=== PATIENT | female | born 1945 | race Asian ===

== ENCOUNTER 2017-04-03 08:15 | Day surgery (SDC) | payer MEDICARE, OTHER ==
[~2017-04-03 08:15] MED LIST: ATEN50TA PO; B CO1TAB4 PO; CALC-1174 PO; DICLOFENAC SODIUM 0.1% 2.5 ML OPHTHALMIC SOLUTION OD ONE; FENO67 PO; HYDR25TA PO; LISI-661 PO; LORA10TA7 PO; MOXIFLOXACIN HCL 0.5% 3 ML OPHTHALMIC SOLUTION OD ONE; OMEG100019 PO; OMEP20 PO; RINGERS SOLUTION,LACTATED 500 ML IV ONE
[2017-04-03] MEDS: PHENYLEPHRINE HCL 2.5% 2 ML OPHTHALMIC SOLUTION OD SCH ×2 (09:09→09:14)
[2017-04-03] MEDS: TROPICAMIDE 1% 2 ML OPHTHALMIC SOLUTION OD SCH ×2 (09:09→09:14)
[2017-04-03] MEDS ORDERED: MIDAZOLAM HCL 2 MG/2 ML VIAL IVP ONE (12:00)
[2017-04-03] MEDS ORDERED: FentaNYL CITRATE-PF 100 MCG/2 ML VIAL IVP ONE (12:00)
[2017-04-03] MEDS ORDERED: HYALURONATE SODIUM 12 MG/ML 0.8 ML SYRINGE IO ONE (17:31)
[2017-04-03] MEDS ORDERED: TETRACAINE HCL VISCOUS 0.5% 5 ML OPHTHALMIC SOLUTION OD ONE (17:31)
[2017-04-03] MEDS ORDERED: DEXAMETHASONE SOD PHOS 4 MG/ML VIAL IVP ONE (17:31)
[2017-04-03] MEDS ORDERED: LIDOCAINE HCL/PF 1% 2 ML VIAL IM ONE (17:31)
[2017-04-03] MEDS ORDERED: VANCOMYCIN HCL 500 MG/VIAL IV ONE (17:31)
[2017-04-03] MEDS ORDERED: POVIDONE-IODINE 10% 15 ML SOLUTION UD TP ONE (17:31)
[2017-04-03] MEDS ORDERED: HYALURONATE SOD/CHONDROITIN SOD 0.5 ML VIAL IO ONE (17:31)
== END 2017-04-03 11:25 | disposition home or self-care (01) ==
LOC: SURGERY 08:15
PROVIDERS: ATTEND Specialist
DX: H25.011 Cortical age-related cataract, right eye (principal); I10 Essential (primary) hypertension; E78.00 Pure hypercholesterolemia, unspecified; M19.90 Unspecified osteoarthritis, unspecified site; Z98.890 Other specified postprocedural states
CPT/HCPCS: 66984; 93005; C1780; J1100; J2250; J3010; J3370; J3490 ×2

== ENCOUNTER → 2018-11-12 | Outpatient (CLI) | payer MEDICARE, OTHER ==
[~2018-11-12] MED LIST changes: -DICLOFENAC SODIUM 0.1% 2.5 ML OPHTHALMIC SOLUTION OD ONE; -MOXIFLOXACIN HCL 0.5% 3 ML OPHTHALMIC SOLUTION OD ONE; +OMEG-135 PO; -OMEG100019 PO; -RINGERS SOLUTION,LACTATED 500 ML IV ONE
== END | disposition home or self-care (01) ==
LOC: RADPV 09:21
PROVIDERS: ATTEND Internal Medicine Cardiovascular Disease
DX: I08.3 Combined rheumatic disorders of mitral, aortic and tricuspid valves (principal); I10 Essential (primary) hypertension
CPT/HCPCS: 93306

== ENCOUNTER → 2021-05-25 | Outpatient (CLI) | payer MEDICARE, OTHER ==
[~2021-05-25] MED LIST changes: +ATEN-72 PO; -ATEN50TA PO; -FENO67 PO; +FENO67CA8 PO; -HYDR25TA PO; +HYDR25TA2 PO; -LISI-661 PO; +LISI-893 PO
== END | disposition home or self-care (01) ==
LOC: RADMN 13:26
PROVIDERS: ATTEND Legal Medicine
DX: I67.82 Cerebral ischemia (principal); R90.82 White matter disease, unspecified; R51.9 Headache, unspecified
CPT/HCPCS: 70551

== ENCOUNTER → 2021-07-10 | Outpatient (CLI) | payer MEDICARE, OTHER ==
[~2021-07-10] MED LIST changes: +B CO PO; -B CO1TAB4 PO
== END | disposition home or self-care (01) ==
LOC: RADPV 12:11
PROVIDERS: ATTEND Legal Medicine
DX: M47.812 Spondylosis without myelopathy or radiculopathy, cervical region (principal); I70.0 Atherosclerosis of aorta; M47.814 Spondylosis without myelopathy or radiculopathy, thoracic region; Z90.49 Acquired absence of other specified parts of digestive tract
CPT/HCPCS: 71046; 72040

== ENCOUNTER → 2021-12-29 | Outpatient (CLI) | payer MEDICARE, OTHER ==
[~2021-12-29] MED LIST changes: +FENO67CA16 PO; -FENO67CA8 PO; +OMEG-108 PO; -OMEG-135 PO; +REGADENOSON 0.4 MG/5 ML PF SYRINGE IVP ONE; +SESTAMIBI TC99M/UD ISOTOPE 1 EA INJ INJ ONE
[2021-12-29] MEDS: REGADENOSON 0.4 MG/5 ML PF SYRINGE IVP ONE (10:00)
[2021-12-29 10:44] VITALS: BP 147/82
== END | disposition home or self-care (01) ==
LOC: CARDMN 07:50
PROVIDERS: ATTEND Internal Medicine Cardiovascular Disease
DX: I49.3 Ventricular premature depolarization (principal); I49.9 Cardiac arrhythmia, unspecified; R07.9 Chest pain, unspecified
CPT/HCPCS: 78452; 93017; 93306; A9500; J2785

== ENCOUNTER → 2022-03-14 | Outpatient (CLI) | payer MEDICARE, OTHER ==
[~2022-03-14] MED LIST changes: -OMEG-108 PO; +OMEG-135 PO; -REGADENOSON 0.4 MG/5 ML PF SYRINGE IVP ONE; -SESTAMIBI TC99M/UD ISOTOPE 1 EA INJ INJ ONE
== END | disposition home or self-care (01) ==
LOC: RADPV 11:32
PROVIDERS: ATTEND Legal Medicine
DX: M79.661 Pain in right lower leg (principal); M79.662 Pain in left lower leg
CPT/HCPCS: 93925; 93970

== ENCOUNTER 2025-06-08 14:38 | Emergency (ER) | payer MEDICARE, OTHER ==
[~2025-06-08] VITALS: Ht 152.4 cm; Wt 45.5 kg
[~2025-06-08 14:38] MED LIST changes: +OMEP-148 PO; -OMEP20 PO
[2025-06-08 14:45] VITALS: TEMP 97.9
[2025-06-08] MEDS ORDERED: MAGN400T57 PO (14:55)
[2025-06-08] MEDS ORDERED: ATOR10TA PO (14:55)
[2025-06-08] MEDS ORDERED: AMLO-257 PO (14:55)
[2025-06-08 15:31] LABS: PLATELET COUNT (AUTO) 366 K/uL (150-450); RED BLOOD CELL COUNT(AUTO) 4.13 MIL/uL (4.00-5.20); RED CELL DISTRIBUTION WIDTH 14.5 % (11.5-14.5); WHITE BLOOD COUNT (AUTO) 4.4 K/uL (4.5-11.0)
[2025-06-08 15:37] LABS: CALCIUM, TOTAL 10.0 mg/dL (8.8-10.5); CREATININE 0.72 mg/dL (0.60-1.30); GLOMERULAR FILTR. RATE CALC > 60 mL/min (>60); GLUCOSE,RANDOM 103 mg/dL (70-110); SODIUM SERUM 140 mmol/L (136-145); UREA NITROGEN, BLOOD 19 mg/dL (7-18)
[2025-06-08 15:42] LABS: ERYTHROCYTE SEDIMENTATION RATE 11 MM/HR (0-30)
[2025-06-08 15:57] LABS: ASPARTATE AMINOTRANSFERASE 31.0 U/L (15-37); TOTAL PROTEIN, SERUM 8.6 g/dL (6.4-8.2)
[2025-06-08] MEDS ORDERED: IOHEXOL 350 MG/ML 100 ML VIAL ONE (16:28)
[2025-06-08] MEDS ORDERED: SODIUM CHLORIDE 0.9% 100 ML ONE (16:28)
[2025-06-08] MEDS ORDERED: 0.9% SODIUM CHLORIDE 10 ML SYRINGE IVP ONE (16:28)
[2025-06-08 18:03] VITALS: BP 169/69; PULSE 73; RESP 16; O2SAT 100
== END 2025-06-08 19:58 | disposition short-term general hospital (02) ==
LOC: EMS 14:40
DX: H53.2 Diplopia (principal); R51.9 Headache, unspecified; E78.00 Pure hypercholesterolemia, unspecified; I10 Essential (primary) hypertension; Z88.5 Allergy status to narcotic agent; Z79.899 Other long term (current) drug therapy; Z98.890 Other specified postprocedural states
CPT/HCPCS: 99285; 74177; 70551; 80048; 80076; 85025; 85610; 85651; 36415; Q9967; J7050